=== PATIENT | female | born 1985 | race Caucasian/White ===

== ENCOUNTER 2020-11-11 18:12 | Emergency (ER) | payer BC, OTHER ==
[2020-11-11 19:34] LABS: Absolute Lymphocytes (CBC) 1.7 K/uL (0.7-4.9); Basophils % 0.3 % (0-1.3); Hematocrit 40.2 % (36.0-45.0); Lymphocytes % 10.6 % (15.3-44.8); RBC Red Blood Cell Count 5.08 M/uL (3.86-4.86)
[2020-11-11] MEDS ORDERED: NA CHLORIDE 0.9% 1,000 ML ONE (19:38)
[2020-11-11] MEDS ORDERED: KETOROLAC 30 MG/ML INJ ONE (19:38)
--- NOTE | 2020-11-11 19:42 | RAD REPORT ---
EXAM DESCRIPTION: CT - Stone Protocol - 11/11/2020 7:23 pm CLINICAL HISTORY: FLANK PAIN COMPARISON: No comparisons TECHNIQUE: Axial 3 mm thick images were obtained without oral or IV contrast. The [id number] span s the entirety of the system including uppermost abdomen and lung bases. All CT scans are performed using dose optimization technique as appropriate and may include automated exposure control or mA/KV adjustment according to patient size. FINDINGS: Mild left-sided hydronephrosis and hydroureter are present down to the left UVJ. No obstru cting calculus seen. Patient has 2 abutting 3 mm sized calyx calculi in the mid left kidney. . No power picious renal masses. Isodense masses and pyelonephritis are not excluded on a stone protocol CT scan . No significant adrenal finding. Urinary bladder is contracted limiting assessment. No bladder calcu li seen. Uterus and ovaries show no suspicious findings. Imaged portions of the liver, spleen and pancreas show no suspicious findings on non-contrast imaging . Gallbladder is absent. No biliary tree dilatation. No suspicious bowel findings. No hernia, mass or bulky lymphadenopathy noted. No free air, free fluid or inflammatory stranding. No significant bony abnormality. IMPRESSION: Mild left-sided hydronephrosis and hydroureter down to the left UVJ. No obstructing calc ulus seen. No stone seen in the urinary bladder. And obstructing mass is possible but not common. Blood or inflammatory debris in the ureter can cause hydronephrosis. Patient has 2 nonobstructing calculi at the left kidney. Isodense masses and pyelonephritis are not excluded on stone protocol technique. No other significant findings.
[2020-11-11 19:44] LABS: Urine Amorphous Sediment 2+ /HPF (NONE SEEN); Urine Bacteria 20-50 /HPF (<20); Urine RBC 20-50 /HPF (NONE SEEN)
[2020-11-11 19:44] LABS: BUN Blood Urea Nitrogen 11 mg/dL (7-18); Bicarbonate 26 mmol/L (21-32); Glucose Level 95 mg/dL (74-106); Potassium 3.8 mmol/L (3.5-5.1); Sodium Level 140 mmol/L (136-145)
--- NOTE | 2020-11-11 20:14 | ER ---
Nurse's Notes [facility] Name: Rosie Peterson Age: 35 yrs Sex: Female : 1985 Arrival Date: 11/11/2020 Time: 18:17 Bed 20 Private MD: Diagnosis: Urinary tract infection, site not specified;Other hydronephrosis Presentation: 11/11 18:31 Chief complaint: Patient states: Urinary urgency and frequency since last night. L ca1 flank pain that is sharp. L unguinal pain. Reports nausea. Denies fever. Coronavirus screen: Client denies travel out of the [place] in the last 14 days. nausea, Client presents with at least one sign or symptom that may indicate coronavirus-19. Standard/surgical mask placed on the client. Provider contacted for isolation considerations. Ebola Screen: Patient negative for fever greater than or equal to 101.5 degrees Fahrenheit, and additional compatible Ebola Virus Disease symptoms Patient denies exposure to infectious person. Patient denies travel to an Ebola-affected area in the 21 days before illness onset. No symptoms or risks identified at this time. Initial Sepsis Screen: Does the patient meet any 2 criteria? No. Patient's initial sepsis screen is negative. Does the patient have a suspected source of infection? No. Patient's initial sepsis screen is negative. Risk Assessment: Do you want to hurt yourself or someone else? Patient reports no desire to harm self or others. Onset of symptoms was November 11, 2020. 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 - Social history:: Smoking status: Patient denies any tobacco usage or history of. Screenin:41 Abuse screen: Denies threats or abuse. Nutritional screening: No deficits noted. jd3 Tuberculosis screening: No symptoms or risk factors identified. Fall Risk Ambulatory Aid- None/Bed Rest/Nurse Assist (0 pts). Gait- Normal/Bed Rest/Wheelchair (0 pts) Mental Status- Oriented to own ability (0 pts). Total Abbott Fall Scale indicates No Risk (0-24 pts). Assessment: 19:40 General: Appears in no apparent distress. uncomfortable, Behavior is calm, cooperative, jd3 appropriate for age. Pain: Complains of pain in left flank and abdomen Quality of pain is described as sharp, shooting. Neuro: Level of Consciousness is awake, alert, obeys commands, Oriented to person, place, time, situation. Cardiovascular: Denies chest pain, Capillary refill < 3 seconds Patient's skin is warm and dry. Respiratory: Airway is patent Respiratory effort is even, unlabored, Respiratory pattern is regular, symmetrical, Denies cough, shortness of breath. GI: Abdomen is round non-distended, Abd is soft and non tender X 4 quads. Reports lower abdominal pain, upper abdominal pain, Patient currently denies diarrhea, vomiting. : Reports urinary frequency. EENT: No signs and/or symptoms were reported regarding the EENT system. Derm: Skin is intact, Skin is dry, Skin is normal, Skin temperature is warm. Musculoskeletal: Circulation, motion, and sensation intact. Range of motion: intact in all extremities. 20:10 Reassessment: Patient appears in no apparent distress at this time. Patient and/or jd3 family updated on plan of care and expected duration. Pain level reassessed. Patient is alert, oriented x 3, equal unlabored respirations, skin warm/dry/pink. Patient states feeling better. 20:27 Reassessment: Patient appears in no apparent distress at this time. Patient and/or jd3 family updated on plan of care and expected duration. Pain level reassessed. Patient is alert, oriented x 3, equal unlabored respirations, skin warm/dry/pink. Patient states feeling better. Vital Signs: 18:31 BP 121 / 85; Pulse 104; Resp 16 S; Temp 97.5; Pulse Ox 100% on R/A; Weight 99.79 kg ca1 (R); Height 5 ft. 4 in. (162.56 cm) (R); Pain 7/10; 20:10 BP 114 / 79; Pulse 98; Resp 16 S; Pulse Ox 99% on R/A; jd3 18:31 Body Mass Index 37.76 (99.79 kg, 162.56 cm) ca1 ED Course: 18:17 Patient arrived in ED. rg4 18:33 Triage completed. ca1 18:34 Arm band placed on right wrist. ca1 18:37 Loly Moreau [facility]-C [facility]. kb 18:37 Fermin Mullins MD is Attending Physician. kb 18:50 Rodolfo Montero RN is Primary Nurse. jd3 19:00 Urine collected: clean catch specimen, clear, renetta colored. jp3 19:18 Inserted saline lock: 20 gauge in right antecubital area, using aseptic technique. jp3 Blood collected. 19:18 Initial lab(s) drawn, by me, sent to lab. Patient maintains SpO2 saturation greater jp3 than 95% on room air. 19:22 Bed in low position. Call light in reach. Side rails up X 1. Warm blanket given. Verbal jp3 reassurance given. 19:23 CT Stone Protocol In Process Unspecified. EDMS 20:13 Pérez Zhang MD is Referral Physician. kb 20:27 No provider procedures requiring assistance completed. IV discontinued, intact, jd3 bleeding controlled, No redness/swelling at site. Pressure dressing applied. Administered Medications: 19:33 Drug: NS 0.9% 1000 ml Route: IV; Rate: 1000 ml; Site: right antecubital; jd3 20:29 Follow up: Response: No adverse reaction; IV Status: Completed infusion; IV Intake: jd3 1000ml 19:33 Drug: TORadol 30 mg Route: IVP; Site: right antecubital; jd3 20:29 Follow up: Response: No adverse reaction jd3 20:09 Drug: Rocephin 1 grams Route: IV; Rate: calculated rate; Site: right antecubital; ll2 20:29 Follow up: Response: No adverse reaction; IV Status: Completed infusion; IV Intake: [id number] Intake: 20:29 IV: 10ml; Total: 10ml. jd3 20:29 IV: 1000ml; Total: 1010ml. jd3 Outcome: 20:14 Discharge ordered by . kb 20:27 Discharged to home ambulatory, with family. jd3 20:27 Condition: stable 20:27 Discharge instructions given to patient, family, Instructed on discharge instructions, follow up and referral plans. medication usage, Demonstrated understanding of instructions, follow-up care, medications, Prescriptions given X 1. 20:30 Patient left the ED. jd3 Addendum: 11/15/2020 08:34 Addendum: Culture Results: Positive urine culture. No further action required. Bacteria s v sensitive to prescribed antibiotic. Signatures: Dispatcher [employer] Loly Norton, MEENA LARAP-Jessie Daniel, RN RN Ladonna Almaguer rg4 Rodolfo Montero RN RN jd3 Willis Henry jp3 Tracy Sun RN RN ca1 Yasmin Barriga RN RN ll2
--- NOTE | 2020-11-11 20:14 | EDPHYS ---
Physician Documentation [facility] Name: Rosie Peterson Age: 35 yrs Sex: Female : 1985 Arrival Date: 11/11/2020 Time: 18:17 Bed 20 Private MD: ED Physician Fermin Mullins HPI: 11/11 20:27 This 35 yrs old Female presents to ER via Ambulatory with complaints of kb Abdominal Pain, Back Pain. 20:27 The patient has not experienced similar symptoms in the past. The patient has not kb recently seen a physician. 20:28 The patient presents with flank pain, on the left, urinary symptoms, dysuria, kb frequency. Onset: The symptoms/episode began/occurred yesterday. Modifying factors: The symptoms are alleviated by nothing, the symptoms are aggravated by urinating. Associated signs and symptoms: Pertinent positives: dysuria, urinary frequency. Severity of symptoms: At their worst the symptoms were moderate, in the emergency department the symptoms are unchanged. 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 - Social history:: Smoking status: Patient denies any tobacco usage or history of. ROS: 20:26 Constitutional: Negative for fever, chills, and weight loss, Cardiovascular: Negative kb for chest pain, palpitations, and edema, Respiratory: Negative for shortness of breath, cough, wheezing, and pleuritic chest pain, MS/Extremity: Negative for injury and deformity, Skin: Negative for injury, rash, and discoloration, Neuro: Negative for headache, weakness, numbness, tingling, and seizure. 20:26 Abdomen/GI: Positive for abdominal pain. 20:26 Back: Positive for flank pain. 20:26 : Positive for urinary symptoms, urinary frequency, small amounts, burning with urination. Exam: 20:26 Constitutional: This is a well developed, well nourished patient who is awake, alert, kb and in no acute distress. Head/Face: Normocephalic, atraumatic. Chest/axilla: Normal chest wall appearance and motion. Nontender with no deformity. No lesions are appreciated. Cardiovascular: Regular rate and rhythm with a normal S1 and S2. No gallops, murmurs, or rubs. Normal PMI, no JVD. No pulse deficits. Respiratory: Lungs have equal breath sounds bilaterally, clear to auscultation and percussion. No rales, rhonchi or wheezes noted. No increased work of breathing, no retractions or nasal flaring. Abdomen/GI: Soft, non-tender, with normal bowel sounds. No distension or tympany. No guarding or rebound. No evidence of tenderness throughout. Back: No spinal tenderness. No costovertebral tenderness. Full range of motion. Skin: Warm, dry with normal turgor. Normal color with no rashes, no lesions, and no evidence of cellulitis. MS/ Extremity: Pulses equal, no cyanosis. Neurovascular intact. Full, normal range of motion. Neuro: Awake and alert, GCS 15, oriented to person, place, time, and situation. Cranial nerves II-XII grossly intact. Motor strength 5/5 in all extremities. Sensory grossly intact. Cerebellar exam normal. Normal gait. Vital Signs: 18:31 BP 121 / 85; Pulse 104; Resp 16 S; Temp 97.5; Pulse Ox 100% on R/A; Weight 99.79 kg ca1 (R); Height 5 ft. 4 in. (162.56 cm) (R); Pain 7/10; 20:10 BP 114 / 79; Pulse 98; Resp 16 S; Pulse Ox 99% on R/A; jd3 18:31 Body Mass Index 37.76 (99.79 kg, 162.56 cm) ca1 MDM: 18:37 Patient medically screened. kb 20:27 Data reviewed: vital signs, nurses notes. Data interpreted: Pulse oximetry: on room air kb is 99 %. Interpretation: normal. Counseling: I had a detailed discussion with the patient and/or guardian regarding: the historical points, exam findings, and any diagnostic results supporting the discharge/admit diagnosis, lab results, radiology results, the need for outpatient follow up, a family practitioner, to return to the emergency department if symptoms worsen or persist or if there are any questions or concerns that arise at home. 11/11 18:47 Order name: Urine Microscopic Only; Complete Time: 19:47 kb 11/11 19:02 Order name: Basic Metabolic Panel; Complete Time: 19:45 kb 11/11 19:02 Order name: CBC with Diff; Complete Time: 19:44 kb 11/11 19:11 Order name: Urine --Ancillary (enter results) tt3 11/11 19:11 Order name: Urine Dipstick--Ancillary (enter results) tt3 11/11 19:12 Order name: Urine --Ancillary EDMS 11/11 18:47 Order name: Urine Test (obtain specimen); Complete Time: 19:21 kb 11/11 18:47 Order name: Urine Dipstick-Ancillary (obtain specimen); Complete Time: 19:21 kb 11/11 19:02 Order name: CT Stone Protocol; Complete Time: 19:44 kb 11/11 19:12 Order name: Urine Dipstick-Ancillary EDMS 11/11 19:46 Order name: Urine Culture EDMS 11/11 19:02 Order name: IV Saline Lock; Complete Time: 19:21 kb 11/11 19:02 Order name: Labs collected and sent; Complete Time: 19:21 kb Administered Medications: 19:33 Drug: NS 0.9% 1000 ml Route: IV; Rate: 1000 ml; Site: right antecubital; jd3 20:29 Follow up: Response: No adverse reaction; IV Status: Completed infusion; IV Intake: jd3 1000ml 19:33 Drug: TORadol 30 mg Route: IVP; Site: right antecubital; jd3 20:29 Follow up: Response: No adverse reaction jd3 20:09 Drug: Rocephin 1 grams Route: IV; Rate: calculated rate; Site: right antecubital; ll2 20:29 Follow up: Response: No adverse reaction; IV Status: Completed infusion; IV Intake: [id number] Disposition: 11/11/20 20:14 Discharged to Home. Impression: Urinary tract infection, site not specified, Other hydronephrosis. - Condition is Stable. - Discharge Instructions: Urinary Tract Infection, Adult, [id number]. - Prescriptions for Macrobid 100 mg Oral Capsule - take 1 capsule by ORAL route every 12 hours for 10 days; 20 capsule. - Medication Reconciliation Form, Thank You Letter, Antibiotic Education, Prescription Opioid Use form. - Follow up: Emergency Department; When: As needed; Reason: Worsening of condition. Follow up: Vicente, Pérez, MD; When: 2 - 3 days; Reason: Recheck today's complaints. Follow up: Private Physician; When: 2 - 3 days; Reason: Recheck today's complaints, Continuance of care, Re-evaluation by your physician. Addendum: 11/13/2020 07:34 Co-signature as Attending Physician, Fermin Mullins MD I agree with the assessment and t w4 plan of care. Signatures: Dispatcher [employer] EDMS Loly Moreau, MATERIAL CHASER-C MATERIAL CHASER-CkRodolfo Fountain, RN RN jd3 Fermin Mullins MD MD tw4 Tracy Sun RN RN ca1 Yasmin Barriga RN RN ll2 Corrections: (The following items were deleted from the chart) 11/11 20:30 20:14 11/11/2020 20:14 Discharged to Home. Impression: Urinary tract infection, site jd3 not specified; Other hydronephrosis. Condition is Stable. Forms are Medication Reconciliation Form, Thank You Letter, Antibiotic Education, Prescription Opioid Use. Follow up: Emergency Department; When: As needed; Reason: Worsening of condition. Follow up: Pérez Zhang; When: 2 - 3 days; Reason: Recheck today's complaints. Follow up: Private Physician; When: 2 - 3 days; Reason: Recheck today's complaints, Continuance of care, Re-evaluation by your physician. kb
[2020-11-11] MEDS ORDERED: CEFTRIAXONE/SWI 1gm 1 GM/10 ML SYR ONE (20:21)
[2020-11-11 20:35] LABS: Urine Blood 2+ (NEG); Urine Glucose NEGATIVE (NEG); Urine Protein 2+ (NEG); Urine pH 6.5 (5.0-7.0)
[2020-11-11 20:48] VITALS: TEMP 97.5
[2020-11-11 20:49] VITALS: BP 114/79; O2SAT 99
== END 2020-11-11 20:30 | disposition home or self-care (01) ==
LOC: ER 18:12
DX: N39.0 Urinary tract infection, site not specified (principal); N13.39 Other hydronephrosis; Z88.1 Allergy status to other antibiotic agents; Z88.8 Allergy status to other drugs, medicaments and biological substances
CPT/HCPCS: 96365; 96361; 87088; 85025; 87086; 80048; 36415; 81025; 87077; 87186; 76377; 74176; 96375; 99284; J0696; J7030; 81003; 81015